=== PATIENT | female | born 1950 | race Caucasian/White ===

== ENCOUNTER → 2023-05-24 13:05 | Outpatient (BNVA) | payer MEDICARE, MEDICAID, SELFPAY | PROVIDERS: Visit Provider Physician Assistant Surgical | DX: J44.1 Chronic obstructive pulmonary disease with (acute) exacerbation (principal); Z72.0 Tobacco use | CPT/HCPCS: 99205; 71046 ==

== ENCOUNTER → 2023-06-11 10:27 | Outpatient (BNVA) | payer MEDICARE, MEDICAID, SELFPAY | PROVIDERS: Visit Provider Student in an Organized Health Care Education/Training Program | DX: J44.9 Chronic obstructive pulmonary disease, unspecified (principal); F17.210 Nicotine dependence, cigarettes, uncomplicated | CPT/HCPCS: 99214 ==

== ENCOUNTER 2023-09-14 01:13 | Outpatient (CLI) | payer MEDICARE, MEDICAID, SELFPAY ==
[2023-09-14] MEDS: Inhaler, Assist Device 1 EACH MC (16:20)
[2023-09-14] MEDS: Levalbuterol HFA 15 GM INH 4 PUFF IH (16:20)
--- NOTE | 2023-09-17 10:20 | W.PFT ---
Date of service: 09/14/23 Time of Service: 15:10 Pulmonary Function Test Result Indications: COPD Interpretation Spirometry: There is no airflow limitation. No bronchodilator response Lung Volumes: There is air trapping and hyperinflation Diffusion Capacity: Decreased diffusion Airway Pressure: Normal airways resistace Impression No airflow obstruction but there is air trapping and a decreased diffusion consistent with emphysema. Clinical Correlation therefore is recommended.
== END 2023-09-14 01:14 | disposition home or self-care (01) ==
LOC: RT 01:14
PROVIDERS: PCP Physician Assistant Medical; Visit Provider Physician Assistant Surgical
DX: J44.9 Chronic obstructive pulmonary disease, unspecified (principal)
CPT/HCPCS: 94060; 94726; 94729

== ENCOUNTER → 2023-09-19 09:16 | Outpatient (BNVA) | payer MEDICARE, MEDICAID, SELFPAY | PROVIDERS: PCP Physician Assistant Medical; Referring Provider Physician Assistant Medical; Visit Provider Physician Assistant Surgical | DX: J44.9 Chronic obstructive pulmonary disease, unspecified (principal); F17.210 Nicotine dependence, cigarettes, uncomplicated; I25.10 Atherosclerotic heart disease of native coronary artery without angina pectoris | CPT/HCPCS: 99214 ==

== ENCOUNTER 2023-11-26 01:57 | Outpatient (CLI) | payer MEDICARE, MEDICAID, SELFPAY ==
--- NOTE | 2023-11-26 06:44 | DI.NM_ITS ---
APPROVED REPORT Exam: Pharmacologic Patient Location: Out-Patient Room/Bed: Stress Nurse: Jasmyn Thompson RN Ordering Provider:ROBYN MEYERS, Contact Number: BMI: 20.33 Baseline Rhythm: Sinus Bradycardia Indications: Chest pressure, CORONEL, coronary arteriosclerosis Medical History Medical History: COPD, raynaud's phenomenon, prediabetes, persisitent insomnia, iron deficiency anemi a, hypothyroidism, HLD, CAD, malignant neoplasm of breast Cardiac Medications: Lorazepam, thyroid (pork) reclast Allergies: NKA Cardiac Risk Factors: HLD, COPD, CVD, smoker Previous Cardiac Procedures: None Pretest Chest Pain Characteristics: None Exercise History: Physically active Physical Disabilities: None Lung Sounds: Clear to auscultation, diminished L throughout Heart Sounds: Bradycardia Stress Test Details Test: Exercise stress converted to pharmacologic stress due to failure to obtain a diagnostic stress test. Reason for pharmacologic stress test: changed from exercise stress test due to inability to reach t arget heart rate. Nuclear Acquisition: Rest Tc-99m/Stress Tc-99m 1 day Rest Isotope: Tc-99m Sestamibi. Dose: 10.0 Date: 11/26/2023 Injection Time: 0837 Stress Isotope: Tc-99m Sestamibi. Dose: 30.0 Date: 11/26/2023 Injection Time: 1036 HR Resting HR Supine: 57 bpm Max Heart Rate (APMHR): 147 bpm Resting HR Standin bpm Target HR (85% APMHR): 125 bpm Max HR Achieved: 121 bpm % of APMHR: 82 Recovery HR: 86 bpm HR response to stress: Normal HR response to stress BP Resting BP Supine: 128/68 mmHg Resting BP Standin/62 mmHg Max BP: 136/62 mmHg Recovery BP: 112/70 mmHg BP response to stress: Normal blood pressure response to stress. ECG Resting ECG: Sinus Bradycardia Ectopy: None Stress ECG: Sinus Tachycardia ST Change: Nondiagnostic low heart rate Arrhythmia: None Recovery ECG: Sinus Rhythm Recovery ST Change: Nondiagnostic low heart rate Recovery Arrhythmia: None Clinical Reason for Termination: Fatigue Stress Symptoms: General Fatigue Exercise duration: 06 min10 sec Highest Stage Reached: Stage 2: 2.5 mph at 12% grade. Exercise capacity: 8.07 METs Angina Score: None Black Treadmill Score: 5.5 Rate Pressure Product: 40322 Stress ECG Conclusion 1. Resting electrocardiogram showed low voltage 2. Patient underwent testing using a combination of exercise and pharmacologic stress with regadenos on 3. Workload computer was 8 METS, achieved 82% of predicted heart rate for age 4. Electrocardiographic portion of the test was nondiagnostic 5. See MPI report Black Treadmill Score is 5.5 which is Low risk. Stress Test Summary STAGE Time (mins) Speed (mph) Grade (%) HR BP SpO2 SYMPTOMS METS Supine 57 128/68 99% Standing 66 90/62 1 3 1.7 10 93 100/48 95% 4.5 2 6 2.5 12 113 7 1 min post Lexiscan injection 118 88/40 3 min post Lexiscan injection 101 132/68 99% 6 min post Lexiscan injection 86 112/70 Protocol changed to chantal scan r/t fatigue. Patient proeeded to imagaing in no apparent distress. MPI Conclusion Myocardial perfusion is normal. There is no ischemia or evidence of prior infarction Ejection fraction is 82% with normal wall motion
[2023-11-26] MEDS: Regadenoson 0.4 MG/5 ML SYR IVP (10:46)
== END 2023-11-26 02:17 ==
LOC: DI 01:58
PROVIDERS: PCP Physician Assistant Medical; Visit Provider Physician Assistant Surgical
DX: I25.10 Atherosclerotic heart disease of native coronary artery without angina pectoris (principal)
CPT/HCPCS: 78452; 93016; 93018; 93017; J2785

== ENCOUNTER 2024-06-18 02:42 | Outpatient (CLI) | payer MEDICARE, MEDICAID, SELFPAY ==
--- NOTE | 2024-06-18 | DI.CTLCSR_ITS ---
Exam(s) CT CHEST LUNG CANCER SCREEN EXAM: CT CHEST LUNG CANCER SCREEN CLINICAL HISTORY: Screening for lung cancer,cigarette smoker,f17.210. TECHNIQUE: Imaging Protocol: Low Dose Technique CONTRAST MATERIAL: None COMPARISON: CT CT CHEST LOW DOSE CA SCREENING from 12/11/2022 FINDINGS: CHEST: LUNGS: In the left upper lobe there is a peripherally located 3 mm nodule which is unchanged from Nov us2022.. Some scarring in the anterior segment of the left upper lobe remains unchanged. Scarring in the inferior lingular segment of the left lung again noted. Scarring in the medial aspect of the l eft lower lobe also unchanged. There are no new significant focal left lung findings. There is no lef t pleural effusion. In the opposite-right lung there is an unchanged 2 mm subpleural nodule located laterally in the righ t upper lobe. There is unchanged scarring in the anterior segment of the right upper lobe in its infe rior aspect. Mild scarring in the medial segment of the right middle lobe is also unchanged. There is slight increase in amount of scar in the lateral segment of the right middle lobe. Benign-appearing increased markings in the posterior basal segment of the right lower lobe remain unchanged. There are no new significant focal right lung findings. No right pleural effusion. MEDIASTINUM: There is no obvious hilar nor mediastinal adenopathy. CARDIAC: Heart size is normal. There is no pericardial effusion.Caliber of the thoracic aorta is wit hin normal limits. OTHER: OSSEOUS: No significant osseous lesions.Mild superior endplate compression fracture of T8 is unchange d. No new fractures.. IMPRESSION: 1. Stable benign-appearing bilateral lung findings minimal if any significant change compared to prev ious outside CT scan of November 2022. 2. No new ominous pulmonary nodules, infiltrates nor pleural effusions. 3. Lung RADS Cat 2 - Benign Appearance / Behavior: Nodules with a very low likelihood of becoming a c linically active cancer due to size or lack of growth Lung-RADS 1.0 CATEGORIES: Category 0 - Prior chest CT exam(s) being located for comparison. Category 1 - Annual screening in 12 months. No nodules or definitely benign nodules. Category 2 - Annual screening in 12 months. Benign appearance. Nodules with low likelihood of becomin g active cancer. Category 3 - 6-month follow-up. Probably benign. Short-term follow-up suggested. Nodules with low lik elihood of becoming active cancer. Category 4A - 3-month follow-up and CT/PET if >8 mm in size. Suspicious finding. Findings which requi re additional testing. Category 4B - Findings which require additional testing and tissue sampling. Category 4X - Category 3 or 4 nodules with additional features or imaging findings that increases the suspicion of malignancy. Modifier S- Potentially clinically significant findings (non lung cancer) RADIATION DOSE DELIVERED: 23.44mGy.cm Total DLP DATA REPOSITORY: All CT scans at this facility are submitted to the National Radiology Data Registry (NRDR) Dose Index Registry (DIR) with the [employer] ([employer]). RADIATION OPTIMIZATION: All CT scans at this facility use at least one of these dose optimization te chniques: automated exposure control; mA and/or kV adjustment per patient size (includes targeted exa ms where dose is matched to clinical indication); or iterative reconstruction.
== END 2024-06-18 03:02 ==
LOC: DI 02:42
PROVIDERS: PCP Physician Assistant Medical; Visit Provider Physician Assistant Surgical
DX: Z12.2 Encounter for screening for malignant neoplasm of respiratory organs (principal); F17.210 Nicotine dependence, cigarettes, uncomplicated
CPT/HCPCS: 71271

== ENCOUNTER → 2024-06-19 09:42 | Outpatient (BNVA) | payer MEDICARE, MEDICAID, SELFPAY | PROVIDERS: PCP Physician Assistant Medical; Referring Provider Physician Assistant Medical; Visit Provider Physician Assistant Surgical | DX: J44.9 Chronic obstructive pulmonary disease, unspecified (principal); R91.1 Solitary pulmonary nodule; F17.210 Nicotine dependence, cigarettes, uncomplicated | CPT/HCPCS: 99214 ==